=== PATIENT | male | born 1965 | race Caucasian/White ===

== ENCOUNTER 2021-06-18 09:10 | Emergency (ER) | payer OTHER ==
[2021-06-18] MEDS ORDERED: fentaNYL 100 MCG/2 ML SDV ONE (09:13)
[2021-06-18] MEDS ORDERED: Ondansetron 4 MG/2 ML SDV ONE (09:14)
[2021-06-18] MEDS ORDERED: Sodium Chloride 0.9% 10 ML Syringe FLUSH PRN (09:14)
[2021-06-18] MEDS ORDERED: Ondansetron 4 MG/2 ML SDV IVPUSH ONE (09:14)
[2021-06-18] MEDS ORDERED: fentaNYL 100 MCG/2 ML SDV IVPUSH ONE (09:14)
[2021-06-18 09:51] VITALS: BP 132/83; PULSE 70
[2021-06-18] MEDS ORDERED: Propofol 200 MG/20 ML SDV ONE (10:28)
== END 2021-06-18 10:54 | disposition home or self-care (01) ==
LOC: JP.ED 09:10
DX: S82.831A Other fracture of upper and lower end of right fibula, initial encounter for closed fracture (principal); S93.04XA Dislocation of right ankle joint, initial encounter; Z88.5 Allergy status to narcotic agent; W00.0XXA Fall on same level due to ice and snow, initial encounter
CPT/HCPCS: 27840; 73590-26-RT; 73590-RT; 73600-26-RT; 73600-RT; 73610-26-RT; 73610-RT; 96374; 96375; 99283; 99283-25; J2405; J2704; J3010; J3490